=== PATIENT | male | born 1965 | race Caucasian/White ===

== ENCOUNTER 2018-07-13 11:02 | Emergency (ER) | payer SELFPAY ==
[2018-07-13] MEDS ORDERED: ONDANSETRON ODT 4 MG TABLET TL STA (12:09)
[2018-07-13] MEDS ORDERED: BUFFERED LIDOCAINE 10 ML SYRINGE SUBQ STA (12:09)
[2018-07-13] MEDS ORDERED: ceFAZolin 1 GM VIAL IM STA (12:09)
--- NOTE | 2018-07-13 12:10 | ED Physician Documentation ---
PD HPI SKIN - Stated complaint Stated Complaint: SWOLLEN LIP - Chief complaint Chief Complaint: Wound - History obtained from History obtained from: Patient - History of Present Illness Timing - onset: Other (He developed a pimple below the left lower lip about a week ago which is popped several times but has increasing pain and swelling there. No fevers. He has been taking a lot of ibuprofen and is nauseous because of it.) Review of Systems Constitutional: denies: Fever, Chills Cardiac: denies: Chest pain / pressure, Palpitations Respiratory: denies: Dyspnea, Cough PD PAST MEDICAL HISTORY - Past Medical History Past Medical History: No - Past Surgical History Past Surgical History: Yes - Present Medications Home Medications: Ambulatory Orders Medication Instructions Recorded Confirmed Clindamycin HCl [Clindamycin 300MG 300 mg PO Q6H #28 capsule 07/13/18 CAP] Hydrocodone/Acetaminophen 1 - 2 each PO Q6H PRN #14 tablet 07/13/18 [Hydrocodon-Acetaminophen 5-325] Ondansetron Odt [Zofran] 4 mg TL Q6H PRN #10 tablet 07/13/18 - Allergies Allergies/Adverse Reactions: Allergies Allergy/AdvReac Type Severity Reaction Status Date / Time No Known Drug Allergies Allergy Verified 07/13/18 11:18 - Social History Does the pt smoke?: No Smoking Status: Never smoker Does the pt drink ETOH?: No Does the pt have substance abuse?: No - Immunizations Immunizations are current?: No PD ED PE NORMAL - Vitals Vital signs reviewed: Yes - General General: Alert and oriented X 3, No acute distress - HEENT HEENT: Other (There is a large abscess of the lower lip and mental area without trismus or sublingual edema.) - Neck Neck: Supple, no meningeal sign, No bony TTP - Neuro Neuro: Alert and oriented X 3, Normal speech Results - Vitals Vitals: Vital Signs - 24 hr 07/13/18 11:15 Temperature 36.7 C Heart Rate 115 H Respiratory 18 Rate Blood Pressure 168/121 H O2 Saturation 98 Oxygen O2 Source Room air Procedures - Abscess I&D (location) L lip Preparation: Lidocaine 1% (mental block, intraoral approach) Incision: Incised with scalpel, Purulent drainage, Loculations broken, Packed (with 1/4 inch packing), Culture obtained Other: Pt tolerated well, Dressing applied, Antibiotic prescribed Departure - Departure Disposition: Home, Self Care Clinical Impression: Lip abscess Condition: Good Record reviewed to determine appropriate education?: Yes Instructions: ED Abscess IandD Prescriptions: Clindamycin HCl [Clindamycin 300MG CAP] 300 mg PO Q6H #28 capsule Hydrocodone/Acetaminophen [Hydrocodon-Acetaminophen 5-325] 1 - 2 each PO Q6H PRN #14 tablet PRN Reason: pain Ondansetron Odt [Zofran] 4 mg TL Q6H PRN #10 tablet PRN Reason: Nausea / Vomiting Comments: We are performing a wound culture, the results should be done in 48-72 hours. If antibiotic change is necessary we will call you. Return if worse in the meantime, especially if you develop increased pain, fevers, cannot keep down the medication. Otherwise follow-up with your physician in approximately 2-3 days. Your blood pressure was elevated today on check into the emergency department. This does not mean that you have hypertension, it is a common phenomenon to come to the emergency department and have elevated blood pressure. I recommend that you see your primary care physician within the week to have it rechecked when you are feeling better.
[2018-07-13] MEDS ORDERED: CLINDAMYCIN 150 MG CAPSULE PO STA (12:52)
[2018-07-13 13:06] VITALS: BP 165/105
== END 2018-07-13 13:06 | disposition home or self-care (01) ==
LOC: ED 11:02
DX: K13.0 Diseases of lips (principal); R11.0 Nausea; R03.0 Elevated blood-pressure reading, without diagnosis of hypertension
CPT/HCPCS: 10060; 87070; 87077; 87181; 87205; 96372; 99283; A9270; Q0162